=== PATIENT | female | born 1940 | race African-American/Black ===

== ENCOUNTER 2019-05-17 11:28 | Inpatient (IN) ==
[2019-05-17] MEDS ORDERED: PHENERGAN IV PRN (12:26)
[2019-05-17] MEDS ORDERED: SODIUM CHLORIDE 0.9% INJ PRN (12:26)
--- NOTE | 2019-05-17 13:14 | Diag Imaging Result Doc PS360 ---
CHEST-PORTABLE - 05/17/2019 INDICATION: htn COMPARISON: 03/28/2018 FINDINGS: There is a new right chest port in good position with the catheter tip at the mid SVC. Lung volumes are low. There is mild diffuse infiltrate in both lung bases that is nonspecific. Heart size is top normal. No pneumothorax or large pleural effusion. IMPRESSION: Low lung volumes. Mild nonspecific bibasilar infiltrates or atelectasis. Electronically signed by Wing Haines 05/17/2019 1:11 PM
[2019-05-17 13:39] LABS: BASO# 0.03 X1000 (0.0-0.2); BASO% 0.3 % (0.0-0.8); EOS# 0.11 X1000 (0.0-0.7); EOS% 1.2 % (0.0-10.0); HEMATOCRIT 26.3 % (37.0-47.0); HEMOGLOBIN 8.2 g/dL (12.0-16.0); IMM GRAN# 0.02 X1000 (0.0-0.04); IMM GRAN% 0.2 % (0.0-0.5); LYMPH% 11.9 % (20.5-51.1); MCH 28.9 PG (27-31); MCHC 31.2 g/dL (33-37); MCV 92.6 FL (81-99); MONO# 0.51 X1000 (0.11-0.59); MONO% 5.5 % (1.7-9.3); MPV 10.4 FL (7.4-10.4); NEUT# 7.49 X1000 (1.4-6.5); NEUT% 80.9 % (42.2-75.2); PLT 251 X1000 (130-400); RBC 2.84 XMIL (4.2-5.4); RDW 20.8 % (11.5-14.5); WBC 9.26 X1000 (4.8-10.8)
[2019-05-17 13:55] LABS: ALBUMIN 3.7 g/dL (3.5-5.0); CREATININE 1.3 mg/dL (0.5-0.9); POTASSIUM 4.6 mmol/L (3.5-5.1); TOTAL BILIRUBIN 0.38 mg/dL (0.20-1.00); TOTAL PROTEIN 7.3 g/dL (6.3-8.3)
[2019-05-17] MEDS: NS 1,000 ML IV SCH (15:17)
[2019-05-17] MEDS: LOVENOX SUBQ SCH ×2 (15:17→19:43)
[2019-05-17 15:21] LABS: MAGNESIUM 2.4 mg/dL (1.5-2.7); PHOSPHORUS 3.7 mg/dL (2.7-4.5)
[2019-05-17 16:18] LABS: URINE SOURCE CATH
[2019-05-17 16:20] LABS: BILIRUBIN URINE NEGATIVE (NEGATIVE); BLOOD URINE NEGATIVE (NEGATIVE); COLOR YELLOW; GLUCOSE URINE NEGATIVE (NEGATIVE); KETONE URINE NEGATIVE (NEGATIVE); LEUKOCYTES URINE NEGATIVE (NEGATIVE); NITRITE URINE NEGATIVE (NEGATIVE); PH URINE 5.5; PROTEIN URINE 70 mg/dL (NEGATIVE); SP GRAVITY URINE 1.026; TURBIDITY URINE HAZY (CLEAR); UROBILINOGEN URINE NORMAL (NORMAL)
[2019-05-17 16:32] LABS: UR EPITHELIAL CELLS >10 /HPF (<10); URINE BACTERIA NEGATIVE /HPF; URINE RBC <10 /HPF (<10)
[2019-05-17 17:09] LABS: URINE CASTS GRANULAR PRESENT; URINE CRYSTALS NONE SEEN; URINE SMALL ROUND CELLS TRANS PRESENT; URINE YEAST NONE SEEN
[2019-05-17 17:17] LABS: INR 1.68; PROTIME 20.1 Seconds (11.0-16.0)
[2019-05-17] MEDS ORDERED: [UNRECOGNIZED DRUG - OTHER] IV SCH ×8 (17:45)
[2019-05-17] MEDS ORDERED: POTASSIUM CHLORIDE IV SCH ×8 (17:45)
[2019-05-17] MEDS ORDERED: TPN ELECTROLYTES IV SCH ×8 (17:45)
[2019-05-17] MEDS ORDERED: MAGNESIUM SULFATE IV SCH ×8 (17:45)
[2019-05-17] MEDS: ROCEPHIN 1 GM in NS 50 ML IV SCH (18:33)
[2019-05-17] MEDS: CLINDAMYCIN 900 MG/D5W 900 MG/50 ML IVPB IV SCH (21:34)
[2019-05-17] MEDS: LIPOSYN 20% 250 ML IV SCH (21:35)
[2019-05-17] MEDS: HUMULIN R SUBQ SCH (21:36)
[2019-05-17] MEDS: FERROUS SULFATE PO SCH (21:49)
[2019-05-17] MEDS: CENTRUM SILVER PO SCH (21:49)
[2019-05-17] MEDS: TIMOPTIC 0.5% OPH SOLUTION BOTH EYES SCH (21:49)
[2019-05-17] MEDS: XALATAN 0.005% OPH SOLN BOTH EYES SCH (21:50)
[2019-05-18] MEDS: NS 1,000 ML IV SCH ×4 (00:43→21:01)
[2019-05-18] MEDS: CLINDAMYCIN 900 MG/D5W 900 MG/50 ML IVPB IV SCH ×3 (04:13→21:01)
[2019-05-18] MEDS: HUMULIN R SUBQ SCH ×2 (06:57→15:39)
[2019-05-18] MEDS: PROTONIX PO SCH (06:58)
[2019-05-18 07:42] LABS: ALBUMIN 3.1 g/dL (3.5-5.0); CALCIUM 8.3 mg/dL (8.8-10.2); CREATININE 1.1 mg/dL (0.5-0.9); PHOSPHORUS 3.3 mg/dL (2.7-4.5); POTASSIUM 4.7 mmol/L (3.5-5.1)
--- NOTE | 2019-05-18 07:52 | GASTROENTEROLOGY CONSULTATION ---
DATE: 05/17/2019 CONSULTING PHYSICIAN: Dr. Bates. REASON FOR CONSULT: Dyspepsia and inability to eat. 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 She had resection about a year ago. She had a followup colonoscopy last month and was scheduled to follow up with me in the office to discuss findings and pathology. She has, however, not felt well since her procedure and has not been eating well, has been losing weight. Continues to feel weak and lethargic. She tells me that she has just not felt like eating anything. She denies any abdominal pain after eating. She denies nausea or vomiting. She has not had any constipation or diarrhea, and has not seen any blood or mucus in her stool. With these complaints, she was brought to the hospital and was admitted for further evaluation and treatment. The patient has a history of signet cell type cancer of the colon with metastasis, a history of hypertension, diabetes, hyperlipidemia. SURGERIES: She has had a bowel resection, an end-to-side anastomosis, ileocolonic anastomosis, and thyroid surgery. MEDICATIONS: Prior to her hospitalization, she had been on warfarin 2 mg every day, iron, Synthroid, Cozaar, Reglan, Actos, promethazine, Zocor, vitamin B, and zinc sulfate. ALLERGIES: No known drug allergies. SOCIAL HISTORY: She lives with her daughter. She does not smoke, does not drink, does not do illicit drugs. FAMILY HISTORY: Noncontributory. REVIEW OF SYSTEMS: As per HPI as above. PHYSICAL EXAMINATION: On examination, a very pleasant, female. She is lying in bed. She is conscious, alert, appears to be in no distress. She appears pale and lethargic. She appears to be in no distress. Vital Signs: Temperature is 98.8 degrees, pulse 97 per minute, breathing 15, blood pressure 120/53. She weighs about 160 pounds. She is 5 feet 8 inches tall. Head is atraumatic and normocephalic. Eyes: Conjunctivae are normal. Sclerae are anicteric. Nares are patent. No discharge. Mouth: Buccal mucosa is moist. Throat is normal. No evidence of oral thrush noted. Neck is supple. No lymphadenopathy or thyromegaly. Chest is clear to auscultate. Heart: S1, S2 audible. No murmur. Abdomen: Full, soft. It is nontender. I could not appreciate a mass or visceromegaly. No ascites noted. Bowel sounds are audible. No pedal edema, cyanosis, or clubbing was noted. HAND BULLDOZER: Grossly intact. No sensory or motor deficit. LABORATORY DATA: At the time of examination, lab was still pending. IMPRESSION: 1. Dyspepsia. 2. Inability to eat. 3. Anorexia. 4. History of colon cancer with metastasis, signet cell type recurrence at the anastomosis. DISCUSSION AND PLAN: Her symptoms could very well be related to her malignancy, which appears to be metastatic and has recurred at the site of anastomosis. Her chemotherapy and other medications, plus diabetes, all that can play a role in her current condition. Upper GI pathology would also be a possibility. An upper GI or EGD may shed some more light. She had her Coumadin today and before we proceed with endoscopy, I would like to check her PT/INR. In the meantime, I would start her on a full liquid diet, encourage her to be up off the bed and move around. We will get PT and OT involved, and continue proton pump inhibitor and symptomatic treatment for her nausea. Depending on her progress, further plans will be made. cc: MD Cynthia Santana MD
[2019-05-18 08:15] LABS: PREALBUMIN 10.4 mg/dL (20-40)
[2019-05-18] MEDS: SYNTHROID PO SCH (08:40)
[2019-05-18] MEDS: NEPHROCAPS PO SCH (08:45)
[2019-05-18] MEDS: LANTUS INSULIN SUBQ SCH (08:45)
[2019-05-18] MEDS: COZAAR PO SCH (08:45)
--- NOTE | 2019-05-18 09:30 | PROGRESS NOTE ---
DATE: 05/18/2019 SUBJECTIVE: Ms. Webster was admitted to [facility] with a metabolic encephalopathy. She had been having auditory and visual hallucinations. This morning, she seems much more awake and alert. She is oriented to name and place. She felt that it was 1919. She did not have any hallucinations last night. She continues with a nonproductive cough and mild pleuritic chest pain. Chest x-rays demonstrated nonspecific bibasilar infiltrates. She had some nausea and vomiting and intermittent dysphagia. I suspect she may have aspirated. Blood sugars are fluctuating. His sugars are ranging from 180 to 220. She was orthostatic on admission. I held her blood pressure medicines. Blood pressures are labile this morning. She denies any chest pain, palpitations, or anginal equivalents. OBJECTIVE: Vital Signs: Temperature 98.4 degrees, pulse 96, respirations 21, blood pressure 151/74. Cardiovascular: Regular rate and rhythm. Lungs: Faint crackles in the bases bilaterally. Abdomen: Soft, nontender, with active bowel sounds. Extremities: Without edema. ASSESSMENT AND PLAN: 1. Aspiration pneumonia. We will continue DuoNeb nebulizer treatments, and IV antibiotics including Rocephin and clindamycin. 2. Type 2 onz-wajesnw-ewclygbmu diabetes mellitus. Her blood sugars are fluctuating. I suspect that is due to the underlying TPN which we are giving her for moderate protein calorie malnutrition as she has been eating very poorly at home. I will continue pattern sugars, Humulin R sliding scale and add Lantus 15 units subcutaneously daily. 3. Hypertension. Blood pressure is too high. We will resume losartan 50 mg daily. 4. General debility. We will have physical therapy work with her. retail services professional has been consulted to arrange for short-term rehab. cc: Cynthia Bates MD
--- NOTE | 2019-05-18 10:13 | Diag Imaging Result Doc PS360 ---
EXAM: CT HEAD W/O CONTRAST 05/18/2019 HISTORY: hallucinations TECHNIQUE: This exam was performed using automated exposure control, adjustment of mA or kV according to patient size, and/or use of iterative reconstruction technique. COMMENT: There are some mild generalized cerebral atrophy. There is no evidence of mass effect or bleed. 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 There is a mucous retention cyst in the left maxillary sinus. Otherwise paranasal sinuses are clear and the calvarium is intact. IMPRESSION: No evidence of acute intracranial disease. Electronically signed by Micheal Yang 05/18/2019 10:11 AM
--- NOTE | 2019-05-18 13:38 | GASTROENTEROLOGY PROGRESS NOTE ---
DATE: 05/18/2019 SUBJECTIVE: The patient states she is feeling better. She was awake and alert at the time of my evaluation. She has had some nausea and occasional vomiting. She is being treated for possible aspiration pneumonia. OBJECTIVE: Vital Signs: Temperature 98.5 degrees, pulse 99, respirations 21, blood pressure 158/67. General: The patient was awake and alert, in no acute distress. Laboratory: Hematology on 05/17/2019: WBC 9.26, hemoglobin 8.2, hematocrit 26.3. Coagulation: Prothrombin time 20.1, INR 1.68. Chemistry: Sodium 138, potassium 4.7, chloride 104, CO2 of 19 BUN 21, creatinine 1.1, glucose 158. ASSESSMENT: 1. Aspiration pneumonia, on antibiotics. 2. Colon cancer with apparent recurrence at the anastomosis site per her recent colonoscopy. Her pathology had shown signet ring cell carcinoma. 3. Nausea with episodes of vomiting and decreased appetite. 4. Anemia. PLAN: Continue current medications. We will try and proceed with EGD tomorrow if her PT and INR are at an acceptable range to proceed with the procedure. Further plans to be made according to findings. I have discussed the EGD with the patient along with benefits and risks, and she wishes to proceed. I have discussed this case with Dr. Murcia. Dictated by NEAL Rhodes for Jeevan Murcia MD cc: NEAL Fontanez MD M. Neel Roberts, MD
[2019-05-18] MEDS: LOVENOX SUBQ SCH (15:40)
[2019-05-18] MEDS: ROCEPHIN 1 GM in NS 50 ML IV SCH (17:03)
[2019-05-18] MEDS ORDERED: TPN ELECTROLYTES 20 ML, MAGNESIUM SULFATE 4 MEQ, POTASSIUM CHLORIDE 10 MEQ, POTASSIUM P... IV SCH ×8 (18:00)
[2019-05-18] MEDS: LIPOSYN 20% 250 ML IV SCH (18:24)
[2019-05-18] MEDS: XALATAN 0.005% OPH SOLN BOTH EYES SCH (21:01)
[2019-05-18] MEDS: CENTRUM SILVER PO SCH (21:01)
[2019-05-18] MEDS: TIMOPTIC 0.5% OPH SOLUTION BOTH EYES SCH (21:02)
[2019-05-18] MEDS: FERROUS SULFATE PO SCH (21:02)
[2019-05-19 01:34] LABS: URINE SOURCE CATH
[2019-05-19 01:37] LABS: BILIRUBIN URINE NEGATIVE (NEGATIVE); BLOOD URINE NEGATIVE (NEGATIVE); COLOR YELLOW; GLUCOSE URINE NEGATIVE (NEGATIVE); KETONE URINE NEGATIVE (NEGATIVE); LEUKOCYTES URINE NEGATIVE (NEGATIVE); NITRITE URINE NEGATIVE (NEGATIVE); PH URINE 5.5; PROTEIN URINE TRACE mg/dL (NEGATIVE); SP GRAVITY URINE 1.013; TURBIDITY URINE CLEAR (CLEAR); UROBILINOGEN URINE NORMAL (NORMAL)
[2019-05-19 01:38] LABS: UR EPITHELIAL CELLS <10 /HPF (<10); URINE BACTERIA NEGATIVE /HPF; URINE RBC <10 /HPF (<10); URINE WBC <10 /HPF (<10)
[2019-05-19] MEDS: HUMULIN R SUBQ SCH ×5 (01:53→21:46)
[2019-05-19] MEDS: CLINDAMYCIN 900 MG/D5W 900 MG/50 ML IVPB IV SCH ×3 (05:13→21:49)
[2019-05-19] MEDS: NS 1,000 ML IV SCH ×2 (05:13→12:03)
[2019-05-19] MEDS: PROTONIX PO SCH (06:31)
[2019-05-19 07:10] LABS: INR 1.68; PROTIME 20.1 Seconds (11.0-16.0)
[2019-05-19 07:30] LABS: AGAP 14; BUN 17 mg/dL (8-22); CALCIUM 7.9 mg/dL (8.8-10.2); CHLORIDE 103 mmol/L (98-107); COSMO 278; CREATININE 0.9 mg/dL (0.5-0.9); ESTIMATED GFR > 60; GLUCOSE 150 mg/dL (70-104); MAGNESIUM 2.3 mg/dL (1.5-2.7); PHOSPHORUS 3.3 mg/dL (2.7-4.5); POTASSIUM 4.9 mmol/L (3.5-5.1); SODIUM 137 mmol/L (136-145); TCO2 20 mmol/L (25-35)
[2019-05-19] MEDS: SYNTHROID PO SCH (08:58)
[2019-05-19] MEDS: NEPHROCAPS PO SCH (08:58)
[2019-05-19] MEDS: COZAAR PO SCH (08:58)
[2019-05-19] MEDS: LANTUS INSULIN SUBQ SCH (09:04)
--- NOTE | 2019-05-19 09:07 | Diag Imaging Result Doc PS360 ---
CHEST-PORTABLE - 05/19/2019 INDICATION: aspiration pneumonia COMPARISON: 05/17/2019 FINDINGS: Stable right chest port in good position. Stable severely low lung volumes. Stable ill-defined bibasilar infiltrates. Heart size remains stable. No large pleural effusion. IMPRESSION: No change from prior. Electronically signed by Wing Haines 05/19/2019 9:04 AM
[2019-05-19 09:13] LABS: HEMATOCRIT 25.4 % (37.0-47.0); HEMOGLOBIN 7.9 g/dL (12.0-16.0); MCH 28.5 PG (27-31); MCHC 31.1 g/dL (33-37); MCV 91.7 FL (81-99); MPV 10.8 FL (7.4-10.4); RBC 2.77 XMIL (4.2-5.4); RDW 21.1 % (11.5-14.5); WBC 9.95 X1000 (4.8-10.8)
--- NOTE | 2019-05-19 09:29 | PROGRESS NOTE ---
DATE: 05/19/2019 SUBJECTIVE: Mrs. Webster was admitted to [facility] with a metabolic encephalopathy. Last night, she became very confused and agitated and had hallucinations. This morning, she was back to her baseline neurologically. A CT scan of the brain demonstrated atrophy and chronic white matter changes. Urine cultures are negative. A chest x-ray showed stable bibasilar infiltrates. Blood pressure is still too high. Systolic blood pressures are in the 170s. Diastolics are in the 70s and 80s. Blood sugars are trending down. Sugars are ranging from 123 to 161. OBJECTIVE: Vital Signs: Temperature 99.6 degrees, pulse 100, respirations 26, BP 178/83. CV: Tachycardic. Regular S1, S2. Lungs: Crackles in the bases bilaterally. Abdomen: Soft, nontender, with active bowel sounds. ASSESSMENT AND PLAN: 1. Metabolic encephalopathy. I suspect she does have underlying mild cognitive impairment. I am going to begin Exelon patches 4.6 grams 1 patch to the chest daily. We will begin Seroquel 25 mg at night. She does not have any obvious electrolyte abnormalities. She continues with what appears to be an aspiration pneumonitis. We will continue Rocephin and clindamycin. 2. Moderate protein calorie malnutrition. We will continue total parenteral nutrition. Because of the persistent nausea and epigastric pain, I have consulted Dr. Murcia for consideration of an esophagogastroduodenoscopy. 3. Hypertension. Blood pressure is still too high. I will increase the losartan to 100 mg daily. 4. Type 2 noninsulin-dependent diabetes mellitus. Sugars are trending down with the addition of Lantus. I anticipate that once she is off the total parenteral nutrition, we will be able to control her sugars with oral medicines alone. cc: Cynthia Bates MD
[2019-05-19] MEDS: EXELON 4.6MG/24HRS TD SCH (12:10)
[2019-05-19] MEDS ORDERED: DIPRIVAN 1% ONE (16:26)
--- NOTE | 2019-05-19 16:59 | ENDOSCOPY OPERATIVE NOTE ---
[facility] ENDOSCOPY OPERATIVE NOTE , EGD PROCEDURE REPORT PATIENT: Radha Webster ADMISSION DATE: 05/19/2019 MR#: [id number] : 1940 PROCEDURE DATE: 05/19/2019 SURGEON: Jeevan Murcia MD STATUS: inpatient GIANT TIRE REPAIRER: Trista Pineda and Shanta Bauer PREOPERATIVE DIAGNOSIS: The patient is a 79 yr old female here for an EGD due to anemia secondary to chronic blood loss, dyspepsia, nausea, and vomiting. PROCEDURE PERFORMED: EGD w/ biopsy MEDICATIONS: Per Anesthesia TOPICAL ANESTHETIC: none CONSENT: The patient understands the risks and benefits of the procedure and understands that these r isks include, but are not limited to: sedation, allergic reaction, infection, perforation and/or bleeding. Alternative means of evaluation and treatment include, among others: physical exam, x-rays, and/or surgical intervention. The patient elects to proceed with this endoscopic procedure. HISORY AND PHYSICAL: 05/19/2019 DESCRIPTION OF PROCEDURE: During intra-op preparation period all mechanical and medical equipment was checked for proper function. Hand hygiene and appropriate measures for infection prevention was taken. After the risks, benefits and alternatives of the procedure were thoroughly explained, Informed consent was verified, confirmed and timeout was successfully executed by the treatment team. The patient was anesthetized with topical anesthesia and the LC50-z01I ([id number]) and [id number] ([id number]) endoscope was introduced through the mouth and advanced to the secon d portion of the duodenum. Retroflexion was performed in the stomach and revealed no abnormalities. The gastroscope was then slowly withdrawn and removed. ESOPHAGUS: Moderately severe reflux esophagitis was found in the lower third of the esophagus. The esophagus was otherwise normal. STOMACH: Moderate acute gastritis (inflammation) was found in the gastric body and gastric antrum. M ultiple biopsies were performed using cold forceps. Sample sent for histology. The stomach otherwise appeared clemente l. DUODENUM: The duodenal mucosa showed no abnormalities. SPECIMENS REMOVED: No ADVERSE EVENTS: There were no complications. POSTOPERATIVE DIAGNOSIS: 1. Reflux esophagitis in the lower third of the esophagus 2. The esophagus was otherwise normal 3. Acute gastritis (inflammation) was found in the gastric body and gastric antrum; multiple biopsie s were performed 4. The stomach otherwise appeared normal 5. The duodenal mucosa showed no abnormalities RECOMMENDATIONS: 1. Resume previous diet 2. Resume current medications 3. Transfer to floor 4. Follow-up biopsy results in 2 weeks 5. Start GI Soft diet for 2 Day(s) REPEAT EXAM: Jeevan Murcia MD eSigned: Jeevan Murcia MD 05/19/2019 4:59 PM cc: Kristian Eng MD PATIENT NAME: Radha Webster MR#: [id number]
[2019-05-19] MEDS: ROCEPHIN 1 GM in NS 50 ML IV SCH (17:56)
[2019-05-19] MEDS: TPN ELECTROLYTES 20 ML, MAGNESIUM SULFATE 4 MEQ, POTASSIUM CHLORIDE 10 MEQ, POTASSIUM P... IV SCH ×8 (19:57)
[2019-05-19] MEDS: LIPOSYN 20% 250 ML IV SCH (19:58)
[2019-05-19] MEDS: FERROUS SULFATE PO SCH (21:52)
[2019-05-19] MEDS: SEROQUEL PO SCH (21:52)
[2019-05-19] MEDS: CENTRUM SILVER PO SCH (21:52)
[2019-05-19] MEDS: MIRALAX PO SCH (21:54)
[2019-05-19] MEDS: XALATAN 0.005% OPH SOLN BOTH EYES SCH (21:55)
[2019-05-19] MEDS: TIMOPTIC 0.5% OPH SOLUTION BOTH EYES SCH (21:55)
[2019-05-20] MEDS: TYLENOL PO PRN (00:26)
[2019-05-20] MEDS ORDERED: COZAAR PO ONE (01:25)
[2019-05-20] MEDS ORDERED: LABETALOL IV ONE (01:26)
[2019-05-20] MEDS: CLINDAMYCIN 900 MG/D5W 900 MG/50 ML IVPB IV SCH ×3 (03:40→20:38)
[2019-05-20 04:24] LABS: BASO# 0.03 X1000 (0.0-0.2); BASO% 0.4 % (0.0-0.8); EOS# 0.23 X1000 (0.0-0.7); EOS% 2.8 % (0.0-10.0); HEMATOCRIT 22.1 % (37.0-47.0); HEMOGLOBIN 6.9 g/dL (12.0-16.0); IMM GRAN# 0.09 X1000 (0.0-0.04); IMM GRAN% 1.1 % (0.0-0.5); LYMPH# 0.99 X1000 (1.2-3.4); MCH 28.3 PG (27-31); MCHC 31.2 g/dL (33-37); MCV 90.6 FL (81-99); MONO# 0.42 X1000 (0.11-0.59); MONO% 5.1 % (1.7-9.3); MPV 9.2 FL (7.4-10.4); NEUT# 6.51 X1000 (1.4-6.5); NEUT% 78.6 % (42.2-75.2); PLT 203 X1000 (130-400); RBC 2.44 XMIL (4.2-5.4); RDW 20.9 % (11.5-14.5); WBC 8.27 X1000 (4.8-10.8)
[2019-05-20 04:30] LABS: INR 1.51; PROTIME 18.5 Seconds (11.0-16.0)
[2019-05-20] MEDS: PROTONIX PO SCH ×3 (06:21→20:42)
[2019-05-20] MEDS: HUMULIN R SUBQ SCH ×4 (06:22→20:32)
--- NOTE | 2019-05-20 07:03 | Diag Imaging Result Doc PS360 ---
EXAM: CHEST-PORTABLE 05/20/2019 HISTORY: Coughing blood TECHNIQUE: AP portable at 0403 COMMENT: There are alveolar opacities present in the mid right lung and left lower lobe. The latter appears slightly worse than on the previous study of 05/19/2019. There is some platelike atelectasis in the right middle lobe. IMPRESSION: Pulmonary edema and/or pneumonia. Electronically signed by Micheal Yang 05/20/2019 7:00 AM
[2019-05-20 07:48] LABS: AGAP 14; ALBUMIN 3.2 g/dL (3.5-5.0); BUN 20 mg/dL (8-22); CHLORIDE 106 mmol/L (98-107); COSMO 285; CREATININE 0.9 mg/dL (0.5-0.9); ESTIMATED GFR > 60; GLUCOSE 190 mg/dL (70-104); MAGNESIUM 2.1 mg/dL (1.5-2.7); PHOSPHORUS 3.6 mg/dL (2.7-4.5); POTASSIUM 4.8 mmol/L (3.5-5.1); SODIUM 139 mmol/L (136-145); TCO2 19 mmol/L (25-35)
[2019-05-20] MEDS ORDERED: TYLENOL PO ONE (08:53)
[2019-05-20] MEDS ORDERED: NS 500 ML IV ONE (08:53)
[2019-05-20] MEDS: COZAAR PO SCH (09:32)
[2019-05-20] MEDS: NEPHROCAPS PO SCH (09:32)
[2019-05-20] MEDS: SYNTHROID PO SCH (09:32)
[2019-05-20] MEDS: EXELON 4.6MG/24HRS TD SCH (09:33)
[2019-05-20] MEDS: LANTUS INSULIN SUBQ SCH (09:33)
--- NOTE | 2019-05-20 10:34 | Diag Imaging Result Doc PS360 ---
CT ABDOMEN/PELVIS W/WO CONTRAS - 05/20/2019 INDICATION: ASCITES WITH HISTORY COLON CANCER COMPARISON: 03/15/2019 FINDINGS: On the noncontrast exam, there are no abnormal calcifications. On the contrast enhanced exam, there are small bilateral pleural effusions. There is moderate passive atelectasis of the lung bases. Heart size is normal with no pericardial effusion. There is increasing ascites, now moderate in quantity. There has been significant increase in size of a heterogeneous intraperitoneal mass at the left side of the pelvis. This now measures about 5.6 x 6.4 cm. Previously this measured 3 x 3.2 cm. There is a Guaman catheter in the urinary bladder. Uterus is absent. Rectum is normal. There are surgical suture lines at the proximal colon. Mild constipation throughout the colon. No bowel obstruction or free air. Tiny nonspecific subcentimeter hypodensity in the inferior right lobe of the liver is stable from prior. No new liver masses. There is left-sided hydronephrosis and delay in functioning of the left kidney. There is also left-sided hydroureter down to the level of the mass. In addition there are some small indeterminate calcifications in this region that are stable from prior. Most likely these calcifications are just phleboliths. There are extensive sclerotic bone metastases diffusely. These are grossly stable from prior. IMPRESSION: 1. Significant enlargement in the left pelvic peritoneal mass. This is in the location of obstruction of the left ureter. This is probably causing the obstruction. There is severe left hydronephrosis and delay in renal functioning. Recommend urology referral for possible stent placement. 2. Worsening ascites. 3. Worsening small bilateral pleural effusions. 4. Constipation. This exam was performed using automated exposure control, adjustment of mA or kV according to patient size, and/or use of iterative reconstruction technique Electronically signed by Wing Haines 05/20/2019 10:30 AM
--- NOTE | 2019-05-20 13:07 | PROGRESS NOTE ---
DATE: 05/20/2019 SUBJECTIVE: Mrs. Webster was admitted to [facility] with a metabolic encephalopathy. Chest x-rays showed what appeared to be small bilateral infiltrates. She has a minimal cough but denies any pleuritic chest pain or significant shortness of breath. O2 saturations are ranging from 98 to 100 percent on room air. She slept more peacefully last night. She did not have any visual or auditory hallucinations. She is having increasing abdominal swelling and girth. A CT scan of the abdomen and pelvis demonstrated increasing ascites with a intraperitoneal mass at the left side of the pelvis measuring 5.6 x 6.4 cm. It had increased from 3 x 3.2 cm. It is creating severe left hydronephrosis and ureteral obstruction. She is still nauseated. EGD showed severe erosive gastritis. OBJECTIVE: Vital signs: Blood pressure it is trending down but is still a little bit too high. This morning, her blood pressure was 173/81. We had increased the losartan to 100 mg daily. Temperature 98.6 degrees, pulse 97, respirations 24, BP 173/81. CV: Regular rate and rhythm. Lungs: Faint crackles in the bases bilaterally. Abdomen: Distended, tympanitic. She has bowel sounds. No rebound or guarding. ASSESSMENT AND PLAN: 1. Metabolic encephalopathy. She does appear to have an aspiration pneumonia. We will continue the Rocephin and clindamycin. There are no obvious electrolyte abnormalities. We will continue Aricept and low-dose Seroquel at night. I do believe she has some underlying mild cognitive impairment. 2. Severe left-sided hydronephrosis with ureteral obstruction. We will consult urology for stent placement. 3. Hypertension. We have just increase the losartan to 100 mg daily and we will monitor her blood pressure closely. cc: Cynthia Bates MD
[2019-05-20] MEDS: MIRALAX PO SCH (14:28)
[2019-05-20] MEDS: LOVENOX SUBQ SCH (14:28)
[2019-05-20] MEDS: ROCEPHIN 1 GM in NS 50 ML IV SCH (16:32)
[2019-05-20] MEDS: LIPOSYN 20% 250 ML IV SCH (18:46)
[2019-05-20] MEDS: NS 1,000 ML IV SCH (18:46)
[2019-05-20] MEDS: TPN ELECTROLYTES 20 ML, MAGNESIUM SULFATE 4 MEQ, POTASSIUM CHLORIDE 10 MEQ, POTASSIUM P... IV SCH ×8 (18:46)
[2019-05-20] MEDS: XALATAN 0.005% OPH SOLN BOTH EYES SCH (20:40)
[2019-05-20] MEDS: TIMOPTIC 0.5% OPH SOLUTION BOTH EYES SCH (20:40)
[2019-05-20] MEDS: CENTRUM SILVER PO SCH (20:40)
[2019-05-20] MEDS: FERROUS SULFATE PO SCH (20:41)
[2019-05-20] MEDS: SEROQUEL PO SCH (20:41)
[2019-05-21] MEDS: NS 1,000 ML IV SCH (03:39)
[2019-05-21] MEDS: CLINDAMYCIN 900 MG/D5W 900 MG/50 ML IVPB IV SCH ×3 (04:39→20:34)
[2019-05-21] MEDS: HUMULIN R SUBQ SCH ×5 (06:25→20:33)
[2019-05-21] MEDS ORDERED: DEMEROL IV PRN (08:34)
[2019-05-21 08:53] LABS: AGAP 15; ALBUMIN 3.1 g/dL (3.5-5.0); BUN 22 mg/dL (8-22); CALCIUM 7.9 mg/dL (8.8-10.2); CHLORIDE 100 mmol/L (98-107); COSMO 272; ESTIMATED GFR > 60; GLUCOSE 174 mg/dL (70-104); MAGNESIUM 2.1 mg/dL (1.5-2.7); PHOSPHORUS 3.7 mg/dL (2.7-4.5); SODIUM 132 mmol/L (136-145); TCO2 17 mmol/L (25-35)
[2019-05-21] MEDS: ALDACTONE PO SCH ×2 (09:44→20:34)
[2019-05-21] MEDS: PROTONIX PO SCH ×2 (09:44→20:35)
[2019-05-21] MEDS: MIRALAX PO SCH (09:44)
[2019-05-21] MEDS: COZAAR PO SCH (09:44)
[2019-05-21] MEDS: SYNTHROID PO SCH (09:44)
[2019-05-21] MEDS: NEPHROCAPS PO SCH (09:44)
[2019-05-21] MEDS: EXELON 4.6MG/24HRS TD SCH (09:44)
[2019-05-21] MEDS: LANTUS INSULIN SUBQ SCH (09:45)
[2019-05-21] MEDS: LOVENOX SUBQ SCH (12:48)
[2019-05-21] MEDS ORDERED: XYLOCAINE-MPF 2% ONE (13:04)
[2019-05-21] MEDS ORDERED: DIPRIVAN 1% ONE (13:05)
[2019-05-21 14:01] LABS: HEMATOCRIT 29.5 % (37.0-47.0); HEMOGLOBIN 9.4 g/dL (12.0-16.0)
--- NOTE | 2019-05-21 14:04 | PROGRESS NOTE ---
DATE: 05/21/2019 SUBJECTIVE: Mrs. Webster was admitted to [facility] with a metabolic encephalopathy secondary to what appeared to be an aspiration pneumonia. Chest x-ray shows small pleural effusions and bibasilar infiltrates. She has a minimal cough. She denies any further nausea or vomiting. She is breathing comfortably. She continues with persistent nausea and diminished appetite. Preliminary pathology shows the presence of signet cell carcinoma in the stomach. CT scan of the abdomen and pelvis demonstrated a large pelvic mass with obstruction of the ureter with severe hydronephrosis. Dr. Sesay is going to see her today for placement of a ureteral stent. She seems more alert and interactive today. She still has bouts of confusion. OBJECTIVE: She is afebrile. Vital signs are stable. CV: Regular rate and rhythm. Lungs: Faint crackles in the bases bilaterally. Abdomen: Soft and nontender with active bowel sounds. ASSESSMENT AND PLAN: 1. Aspiration pneumonia. We will continue DuoNeb nebulizer treatments and IV antibiotics, including Rocephin and clindamycin. 2. Metabolic encephalopathy. Clinically, she is better. I suspect that she has some degree of mild cognitive impairment. She has an underlying aspiration pneumonia. I also suspect that the progressive underlying colon cancer is contributing to her symptoms. I have had long talks with Mrs. Webster and her family. She does not want any further intravenous chemotherapy. She is not sure if she is willing to try oral chemotherapy. She is leaning towards hospice. I have asked [facility] to see her in consultation to tell Mrs. Webster more about their services. 3. Type 2 noninsulin dependent diabetes mellitus. Her blood sugars are trending upward on TPN. I will wean her off the lipids. We will continue aminosyn. We will continue patterned sugars, Humulin R sliding scale and Lantus. cc: Cynthia Bates MD
[2019-05-21] MEDS: ROCEPHIN 1 GM in NS 50 ML IV SCH (16:41)
[2019-05-21] MEDS ORDERED: TPN ELECTROLYTES IV SCH ×7 (18:00)
[2019-05-21] MEDS ORDERED: POTASSIUM PHOSPHATE IV SCH ×7 (18:00)
[2019-05-21] MEDS ORDERED: MAGNESIUM SULFATE IV SCH ×7 (18:00)
[2019-05-21] MEDS ORDERED: [UNRECOGNIZED DRUG - OTHER] IV SCH ×7 (18:00)
[2019-05-21] MEDS: FERROUS SULFATE PO SCH (20:34)
[2019-05-21] MEDS: CENTRUM SILVER PO SCH (20:34)
[2019-05-21] MEDS: TIMOPTIC 0.5% OPH SOLUTION BOTH EYES SCH (20:35)
[2019-05-21] MEDS: SEROQUEL PO SCH (20:35)
[2019-05-21] MEDS: XALATAN 0.005% OPH SOLN BOTH EYES SCH (20:35)
--- NOTE | 2019-05-21 20:40 | GASTROENTEROLOGY PROGRESS NOTE ---
DATE: 05/21/2019 SUBJECTIVE: Patient states she does not feel well today. She has had a drop in her hemoglobin and hematocrit. She has blood in her urine noted through Guaman catheter. She had a CT scan that showed significant enlargement in the left pelvic peritoneal mass in the location of the obstruction of left ureter with severe left hydronephrosis and delay in renal functioning. Patient has been seen by Dr. Sesay. OBJECTIVE: Vital Signs: Temperature 98.9 degrees, pulse 106, respirations 16, blood pressure 179/80. General: The patient is awake and alert in no acute distress. LABORATORY: Hematology: WBC 8.27, hemoglobin 6.9, hematocrit 22.1, MCV 90.6. Coagulation: Protime 18.5, INR 1.51. Chemistry: Sodium 132, potassium 5.0, chloride 100, CO2 17, BUN 22, creatinine 1.0, glucose 174. ASSESSMENT AND PLAN: 1. Colon cancer with recurrent anastomosis site per recent colonoscopy. Pathology showed signet ring cell carcinoma. 2. Episodes of nausea and vomiting and decreased appetite. 3. Anemia. 4. Aspiration pneumonia on antibiotics. 5. Severe hydronephrosis, hematuria, anemia. Patient has been seen by Dr. Sesay. She has been held n.p.o. today. We will repeat hemoglobin and hematocrit. She may need blood transfusion. Further plans will be made as needed. I have discussed this case with Dr. Murcia. Dictated by NEAL Rhodes for Jeevan Murcia MD cc: NEAL Fontanez MD M. Neel Roberts, MD [facility] HOSPITALNatalie
[2019-05-21] MEDS ORDERED: GEODON IM ONE (20:55)
[2019-05-21] MEDS ORDERED: STERILE WATER INJ. INJ ONE (20:55)
[2019-05-22] MEDS: NS 1,000 ML IV SCH ×2 (03:04→12:42)
[2019-05-22] MEDS: CLINDAMYCIN 900 MG/D5W 900 MG/50 ML IVPB IV SCH ×2 (03:05→12:41)
[2019-05-22] MEDS: HUMULIN R SUBQ SCH ×3 (06:30→17:06)
[2019-05-22 08:12] LABS: AGAP 12; ALBUMIN 3.1 g/dL (3.5-5.0); BUN 24 mg/dL (8-22); CALCIUM 7.9 mg/dL (8.8-10.2); CHLORIDE 105 mmol/L (98-107); COSMO 286; ESTIMATED GFR > 60; GLUCOSE 150 mg/dL (70-104); PHOSPHORUS 4.2 mg/dL (2.7-4.5); POTASSIUM 4.9 mmol/L (3.5-5.1); SODIUM 140 mmol/L (136-145); TCO2 23 mmol/L (25-35)
[2019-05-22] MEDS ORDERED: MORPHINE IR PO PRN (08:36)
[2019-05-22] MEDS: NEPHROCAPS PO SCH (09:12)
[2019-05-22] MEDS: MIRALAX PO SCH (09:12)
[2019-05-22] MEDS: PROTONIX PO SCH (09:12)
[2019-05-22] MEDS: COZAAR PO SCH (09:12)
[2019-05-22] MEDS: SYNTHROID PO SCH (09:12)
[2019-05-22] MEDS: ALDACTONE PO SCH (09:12)
[2019-05-22] MEDS: EXELON 4.6MG/24HRS TD SCH (09:12)
[2019-05-22] MEDS: POTASSIUM PHOSPHATE IV SCH ×14 (09:13→18:47)
[2019-05-22] MEDS: TPN ELECTROLYTES IV SCH ×14 (09:13→18:47)
[2019-05-22] MEDS: LANTUS INSULIN SUBQ SCH (09:13)
[2019-05-22] MEDS: MAGNESIUM SULFATE IV SCH ×14 (09:13→18:47)
[2019-05-22] MEDS: [UNRECOGNIZED DRUG - OTHER] IV SCH ×14 (09:13→18:47)
[2019-05-22] MEDS ORDERED: TOPROL XL PO SCH (09:30)
[2019-05-22] MEDS: CATAPRES PO SCH (10:19)
--- NOTE | 2019-05-22 10:53 | PROGRESS NOTE ---
DATE: 05/22/2019 SUBJECTIVE: Ms. 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 She now has pelvic as well as bony metastases. Pathology demonstrated spread to the stomach. She had ureteral obstruction and hydronephrosis and underwent stenting of the left ureter yesterday. Appetite is still significantly diminished. She has chronic nausea. Gastric emptying study was normal. Blood sugars are ranging from 148 to 180. Her blood counts were 9.4 and 29.5. She has had a total of 3 units of packed red blood cells. Her blood pressure is fluctuating. Systolic blood pressures have been in the 160s and 180s. She has persistent abdominal distention and ascites. OBJECTIVE: Vital signs: Temperature 98.9 degrees, pulse 97, respirations 18, BP 185/82. CV: Regular rate and rhythm. Lungs: Faint crackles in the bases bilaterally. Abdomen: Abdomen distended with bowel sounds. She does have significant ascites. ASSESSMENT AND PLAN: 1. Aspiration pneumonia. She continues to improve. She is no longer running fever. Her cough is minimal. We will continue DuoNeb nebulizer treatments and IV antibiotics while hospitalized. 2. Metastatic signet ring carcinoma of the colon. I have had long discussions with Ms. Webster and her family. They have opted for hospice care. We of consulted [facility]. We will make arrangements for equipment to be delivered home, and we anticipate discharge on Friday to give the family time to make arrangements at home. 3. Severe protein calorie malnutrition. We will continue to wean her off TPN, as she will not be able to take TPN at home under hospice care. 4. Hypertension. Her blood pressure is too high. I am going to continue losartan 100 mg daily and add clonidine 0.2 mg b.i.d. 5. Chronic blood loss anemia. We will monitor blood counts and transfuse as indicated. cc: Cynthia Bates MD
[2019-05-22 10:56] LABS: HEMATOCRIT 30.8 % (37.0-47.0); HEMOGLOBIN 9.9 g/dL (12.0-16.0)
[2019-05-22] MEDS: LOVENOX SUBQ SCH (12:41)
--- NOTE | 2019-05-22 13:47 | CONSULTATION ---
DATE OF CONSULTATION: 05/21/2019 CONSULTING PHYSICIAN: Dr. Bates. CONSULTATION: For left hydronephrosis, pelvic mass. HISTORY OF PRESENT ILLNESS: A 79-year-old female with history of metastatic colon cancer who was admitted with failure to thrive. She has undergone imaging on 05/20/[address] abdomen and pelvis which revealed left hydroureteronephrosis with the pelvic mass causing extrinsic compression on the ureter. Urology was consulted for further recommendations. The patient states she denies gross hematuria, dysuria, recurrent UTIs, flank pain. She denies being told in the past her kidney had swelling. PAST MEDICAL HISTORY: Metastatic colon cancer, hypertension, diabetes, hyperlipidemia, hypothyroidism. PAST SURGICAL HISTORY: Colon resection, thyroid surgery. ALLERGIES: No known drug allergies. HOME MEDICATIONS: Warfarin, Synthroid, Cozaar, Reglan, Actos, promethazine, Zocor, vitamins. SOCIAL HISTORY: Denies tobacco, alcohol or illicit drug use. FAMILY HISTORY: Negative for malignancies. REVIEW OF SYSTEMS: Reviewed and 12 systems negative exception to the HPI, lethargy, decreased appetite. PHYSICAL EXAMINATION: T 98.9 degrees, P 106, BP 179/80.General: No acute distress. HEENT: Normocephalic, atraumatic. Cardiovascular: Regular rhythm. Pulmonary: Bilateral breath sounds. Abdomen: Protuberant, nontender to palpation. : Guaman catheter in place. Draining straw- colored urine. Bladder is nontender to palpation. Back: No CVA tenderness. Dermatologic: No obvious skin rashes. Neurologic: Alert and oriented x3. Psychiatric: Appropriate mood and affect. LABS: Hematocrit 29.5, creatinine is 1.0. Urinalysis on 05/19/2019 was negative for infection. PERTINENT IMAGES: CT abdomen and pelvis with and without contrast on 05/20/2019 as per HPI. ASSESSMENT/PLAN: A 79-year-old female with metastatic colon cancer who has a pelvic mass which compresses her left ureter hence causing left hydroureteronephrosis. The patient is not symptomatic. I have discussed her options which are to observe it as there is talk of her going on hospice. We discussed that observing it may down the road cause symptoms such as flank pain, nausea and infections. We also discussed her option could be cystoscopy with left retrograde pyelogram, and left ureteral stent placement. The patient wants to proceed with the latter. Risks of the procedure including, but not limited to, bleeding, infection, injury to the bladder, injury to adjacent structures, inability to place a stent and need for other interventions were explained. She voiced understanding and wants to proceed. PLAN: To the operating room later today for cystoscopy, left retrograde pyelogram, left ureteral stent placement. cc: MD Cynthia Mendes MD
--- NOTE | 2019-05-22 14:21 | PROGRESS NOTE ---
DATE: 05/22/2019 Ms. Webster states she is feeling fine. She denies left flank pain. She denies nausea, vomiting. She underwent cystoscopy with left ureteral stent placement on 05/21/2019. OBJECTIVE: Vital Signs: T 98.7 degrees, P 101, BP 182/77. General: No acute distress. Abdomen: Nontender, nondistended. Guaman catheter draining straw-colored urine. PERTINENT LABS: Hematocrit is 31. Creatinine is 1.0. ASSESSMENT/PLAN: A 79-year-old female with pelvic mass causing extrinsic compression on the left ureter who underwent cystoscopy with left ureteral stent placement on 05/21/2019. I have explained to the patient that she will likely need to keep the ureteral stent and have it exchanged in the future. I have discussed with the patient and her daughter yesterday that it is important to change the ureteral stent in 4 months or so because failure to do so could cause encrustation of the stent and eventual blockage and damage to the kidney which could be irreversible. I do realize the patient is going home with hospice and I have discussed with the patient's daughter that if her health deteriorates she obviously may not need to have to her ureteral stent exchange. If her health is stable and 4 months that would be reasonable to perform cystoscopy with left ureteral stent exchange. The patient's daughter voiced understanding yesterday and the patient voiced understanding about that today. PLAN: No further urologic intervention at this point. I will be happy to see her in outpatient basis in approximately 4 months to set her up for left ureteral stent exchange. Please call with questions. cc: MD Cynthia Mendes MD
[2019-05-22] MEDS: ROCEPHIN 1 GM in NS 50 ML IV SCH (17:06)
--- NOTE | 2019-05-22 19:57 | OPERATIVE NOTE ---
PROCEDURE DATE: 05/21/2019 SURGEON: Ross Sesay MD. PREOPERATIVE DIAGNOSIS: Metastatic colon cancer, pelvic mass, left hydronephrosis. POSTOPERATIVE DIAGNOSIS: Metastatic colon cancer, pelvic mass, left hydronephrosis. PROCEDURE: Cystoscopy, left retrograde pyelogram, left ureteral stent placement (6-Belizean 24 cm). ANESTHESIA: Laryngeal mask anesthesia. INDICATIONS: A 79-year-old female with metastatic colon cancer who was admitted to the hospital with failure to thrive. In the process of imaging she was found have left hydronephrosis. She was counseled on options and wants to proceed with stent placement. FINDINGS: Cystourethroscopy revealed no evidence of concerning mucosal lesions. Left retrograde pyelogram revealed dilated renal pelvis and blunting of the calices. Successful placement of 6- Belizean, 24 cm ureteral stent. PROCEDURE: After obtaining informed consent, the patient was brought to the operating room. Perioperative antibiotics and laryngeal mask anesthesia were administered. the patient was placed in the lithotomy position and prepped and draped in sterile fashion. A 21-Belizean rigid cystoscope was used to gain access to the urethra and the bladder, which was then examined systematic fashion. She had mild mucosal edema in the posterior bladder wall consistent with an indwelling Guaman catheter. She had no evidence of concerning mucosal lesions. No evidence of excessive trabeculations or diverticula noted. There were no stones within the bladder lumen. We turned attention to the left ureteral orifice, which was cannulated with a cone-tipped ureteral catheter, 5 Belizean in size. A 50% diluted Omnipaque dye was used to perform the pyelogram. It revealed a fairly normal caliber distal ureter, mild dilation of the proximal ureter and dilated renal pelvis with blunting of the major calices. There were no filling defects noted. In the standard fashion, a PTFE wire was advanced to the level of the renal pelvis. A 6-Belizean, 24 cm ureteral stent was advanced over the wire via the cystoscope with the proximal coil position confirmed fluoroscopically, and distal coil directly visualized. The string was detached from the stent. The cystoscope was removed. A 16-Belizean Guaman catheter was introduced with the bladder drained after 10 mL of sterile water was placed in the balloon. She was extubated and taken to the PACU for further recovery. ESTIMATED BLOOD LOSS: None. COMPLICATIONS: None. SPECIMENS: None. DRAINS: 16-Belizean Guaman catheter and a 6-Belizean, 24 cm ureteral stent. DISPOSITION: To PACU and subsequently floor for observation. cc: MD Cynthia Mendes MD
[2019-05-23] MEDS: CLINDAMYCIN 900 MG/D5W 900 MG/50 ML IVPB IV SCH ×4 (00:15→22:13)
[2019-05-23] MEDS: TIMOPTIC 0.5% OPH SOLUTION BOTH EYES SCH ×2 (01:01→21:46)
[2019-05-23] MEDS: XALATAN 0.005% OPH SOLN BOTH EYES SCH ×2 (01:01→21:46)
[2019-05-23] MEDS: HUMULIN R SUBQ SCH ×5 (02:15→21:47)
[2019-05-23] MEDS: SEROQUEL PO SCH (02:15)
[2019-05-23] MEDS: PROTONIX PO SCH ×3 (02:15→21:46)
[2019-05-23] MEDS: CATAPRES PO SCH ×3 (02:16→21:46)
[2019-05-23] MEDS: ALDACTONE PO SCH ×3 (02:16→21:46)
[2019-05-23] MEDS: NS 1,000 ML IV SCH (06:33)
[2019-05-23 07:50] LABS: CREATININE 1.1 mg/dL (0.5-0.9); PHOSPHORUS 4.2 mg/dL (2.7-4.5); PREALBUMIN 7.8 mg/dL (20-40)
[2019-05-23 07:59] LABS: CALCIUM 6.8 mg/dL (8.8-10.2)
[2019-05-23] MEDS: SYNTHROID PO SCH (09:17)
[2019-05-23] MEDS: COZAAR PO SCH (09:17)
[2019-05-23] MEDS: LANTUS INSULIN SUBQ SCH (09:18)
[2019-05-23] MEDS: MIRALAX PO SCH (09:18)
[2019-05-23] MEDS: TYLENOL PO PRN (09:18)
[2019-05-23] MEDS ORDERED: CALCIUM GLUCONATE 4.65 MEQ in NS 50 ML IV ONE (11:35)
--- NOTE | 2019-05-23 11:53 | PROGRESS NOTE ---
DATE: 05/23/2019 She was admitted with a metabolic encephalopathy secondary to an aspiration pneumonia. Clinically, she is easily arousable and is oriented to name and place. She still is sleepy at times. She has been taking low-dose Seroquel. Blood pressure looks much improved. She denies any chest pain, palpitations, or anginal equivalents. Pain is well controlled on immediate release morphine. PHYSICAL EXAMINATION: Temperature 99.6 degrees, pulse 96, respirations 18, BP 138/59. CV: Regular rate and rhythm. Lungs: Clear. Abdomen: Soft, nontender, with active bowel sounds. No hepatosplenomegaly. No abdominal bruits. The abdomen is mildly distended. ASSESSMENT AND PLAN: 1. Metabolic encephalopathy secondary to aspiration pneumonia. Clinically, she is approaching her baseline. She is maintaining good oxygen saturations. We will continue intravenous antibiotics throughout her hospitalization. We do anticipate home with hospice in the morning. 2. Hypertension. Blood pressure is stable. We will continue her current regimen of medication. cc: Cynthia Bates MD
[2019-05-23] MEDS: D10W 1,000 ML IV SCH (13:21)
[2019-05-23] MEDS: LOVENOX SUBQ SCH (13:21)
[2019-05-23] MEDS: ROCEPHIN 1 GM in NS 50 ML IV SCH (19:41)
[2019-05-24] MEDS: HUMULIN R SUBQ SCH ×2 (08:14→15:56)
--- NOTE | 2019-05-24 08:37 | Diag Imaging Result Doc PS360 ---
EXAM: RETROGRADES 2 OR 3 FILMS 05/21/2019 HISTORY: LT RETROGRADE/ STENT PLACEMENT TECHNIQUE: 11 images COMMENT: Contrast was injected in the left ureteral orifice. There is some apparent stenosis of the mid left ureter possibly associated with some small diverticula. A stent was placed at the termination of the procedure by Dr. Sesay. IMPRESSION: Apparent ureteral stenosis. Stent placement. Electronically signed by Micheal Yang 05/24/2019 8:35 AM
[2019-05-24] MEDS: MIRALAX PO SCH (08:44)
[2019-05-24] MEDS: CATAPRES PO SCH (08:49)
[2019-05-24] MEDS: ALDACTONE PO SCH (08:49)
[2019-05-24] MEDS: CLINDAMYCIN 900 MG/D5W 900 MG/50 ML IVPB IV SCH (08:49)
[2019-05-24] MEDS: PROTONIX PO SCH (08:49)
[2019-05-24] MEDS: COZAAR PO SCH (08:49)
[2019-05-24] MEDS: SYNTHROID PO SCH (08:49)
[2019-05-24] MEDS: LANTUS INSULIN SUBQ SCH (08:49)
[2019-05-24 12:40] VITALS: BP 107/77
[2019-05-24] MEDS: D10W 1,000 ML IV SCH (15:57)
[2019-05-24] MEDS: LOVENOX SUBQ SCH (15:58)
--- NOTE | 2019-05-24 18:03 | GASTROENTEROLOGY PROGRESS NOTE ---
DATE: 05/24/2019 SUBJECTIVE: Patient is awake and alert. She did have a little confusion noted when I asked her some questions. She had a urology procedure by Dr. Sesay on Friday with a stent placement. There has been no evidence of active bleeding. OBJECTIVE: Vital Signs: Temperature 98.1 degrees, pulse 81, respirations 18, blood pressure 107/77. General: Patient is awake and alert. LABORATORY: Hematology 05/22/2019 hemoglobin 9.9, hematocrit 30.8. Chemistry, sodium 132, potassium 5.0, chloride 101, CO2 18, BUN 30, creatinine 1.1, glucose 121. ASSESSMENT AND PLAN: 1. Colon cancer with recurrence at an anastomosis site per recent colonoscopy, pathology showing signet ring cell carcinoma. She is following with Dr. Escalera. 2. Anemia, stable. 3. Recent aspiration pneumonia. 4. Recent hydronephrosis hematuria. Patient had urology procedure with stent placed by Dr. Sesay on Friday. 5. Continue current management. Recommend she follow up with Dr. Escalera after discharge. Recommend she follow up in our office also after discharge. I have discussed this case with Dr. Murcia. Dictated by NEAL Rhodes for Jeevan Murcia MD cc: NEAL Fontanez MD M. Neel Roberts, MD
--- NOTE | 2019-06-25 21:01 | DISCHARGE SUMMARY ---
ADMISSION DATE: 05/17/2019 DISCHARGE DATE: 05/24/2019 DISCHARGE DIAGNOSES: 1. Metabolic encephalopathy. 2. Aspiration pneumonia. 3. Severe protein calorie malnutrition. 4. Mild cognitive impairment. 5. 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 6. Type 2 insulin-dependent diabetes mellitus. 7. Long-term use of insulin. 8. Primary hypothyroidism. 9. Essential hypertension. DISCHARGE INSTRUCTIONS: 1. The patient will be admitted to the care of [facility]. 2. Condition on discharge terminal. 3. 1800 calorie ADA, mechanical soft diet. MEDICATIONS: Clonidine 0.2 mg b.i.d., losartan 100 mg daily, morphine immediate release 15 mg q.4 hours p.r.n. pain, pantoprazole 40 mg daily, spironolactone 25 mg b.i.d. This is an elderly, frail 79-year-old lady in no apparent distress. She is afebrile, pulse 81, respirations 18, BP 107/77. CV: Regular rate and rhythm. Lungs: Clear. Abdomen: Mildly distended with ascites. No rebound or guarding. Ms. Radha Webster was admitted to [facility] with increasing confusion and disorientation. She had been having auditory and visual hallucinations. She had been having intractable nausea and vomiting and was with complaint of a persistent cough productive of yellowish sputum. Her initial chest x-ray demonstrated diffuse infiltrates in both lung bases. We were concerned that she had aspirated. We treated her nausea and vomiting on a p.r.n. basis with Zofran. We began broad-spectrum antibiotics including Zosyn and INCOMPLETE REPORT -- DICTATION ENDS HERE. cc: Cynthia Bates MD
--- NOTE | 2019-06-25 21:05 | DISCHARGE SUMMARY ---
ADMISSION DATE: 05/17/2019 DISCHARGE DATE: 05/24/2019 CONTINUATION: Over the course of the next several days, she responded to supplemental O2 nebulizer treatments and broad-spectrum antibiotics. The aspiration pneumonia resolved. She had not been eating well and had been losing weight. She had lost over 15 pounds. Her initial albumin was 3.1 and her pre-albumin was 10.4. We treated her with TPN. During her hospitalization, she was noted to have a rising BUN and creatinine. A CT scan of the abdomen and pelvis demonstrated extensive bony metastases and severe left hydronephrosis due to obstruction of the ureter by extrinsic mass. Dr. Sesay placed a stent. We had long discussions with Ms. 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 She had bony metastases. She had liver metastasis. She had intraabdominal metastasis. She had already undergone palliative chemotherapy and was not a candidate for any immunologic agents. Ms. Webster will reported that she wanted to with dignity. We initiated palliative measures and consulted [facility]. She was admitted to the service of [facility] in terminal condition. cc: Cynthia Bates MD
== END 2019-05-24 16:52 | disposition hospice, home (50) | DRG 987 ==
LOC: DIRADM 11:28 → 3N 12:15
PROVIDERS: ADMIT Internal Medicine; ATTEND Internal Medicine